=== PATIENT | female | born 1965 | race Caucasian/White ===

== ENCOUNTER 2017-03-16 06:13 | Emergency (ER) | payer OTHER ==
[~2017-03-16] VITALS: Ht 162.6 cm; Wt 68.0 kg
--- NOTE | 2017-03-16 06:24 | ED GI/GU/ABDOMINAL COMPLAINT ---
History of Present Illness General Chief Complaint: Female Urogenital Problems Stated Complaint: UTERAN PAIN EXCRUCIATING PER PT Source: patient, family, old records Exam Limitations: no limitations Vital Signs & Intake/Output Vital Signs & Intake/Output Vital Signs Date Time Temp Pulse Resp B/P B/P Pulse O2 O2 Flow FiO2 Mean Ox Delivery Rate 03/16 0901 97.3 88 18 128/67 98 03/16 0628 96.4 79 20 137/66 95 Room Air Triage Nurses Notes Reviewed? yes ? N Is pt currently ? No HPI: Patient is 6 over the past few days she has had abdominal bloating and that her pants and felt tight. Patient started her menstrual cycle 2 days ago and has been having crampy pelvic pain associated with that. This morning at 2:30 in the morning she was woken with sharp stabbing pain in the bilateral lower quadrant and suprapubic area. The pain radiates straight through to her back. The pain is severe 10 out of 10. There are no aggravating or mitigating factors. There is no nausea or vomiting. There is no hematuria. There is no diarrhea. (TERI AMOS,HANS Ham) Allergies Coded Allergies: Sulfa (Sulfonamide Antibiotics) (Severe, SUNBURN, PALPITATIONS 03/16/17) Reconcile Medications No Known Home Medications (SHELBY RHOADES MD) Past History Travel History Traveled to [place] past 21 day No Medical History Any Pertinent Medical History? see below for history Neurological: multiple sclerosis Surgical History Surgical History: appendectomy Psychosocial History What is your primary language [place] Tobacco Use: Never used ETOH Use: occasional use Illicit Drug Use: denies illicit drug use Family History Hx Contributory? No (HANS WILLIAMSON MD) Review of Systems Review of Systems Constitutional: Reports: no symptoms. EENTM: Reports: no symptoms. Respiratory: Reports: no symptoms. Cardiovascular: Reports: no symptoms. GI: Reports: see HPI, abdominal pain. Genitourinary: Reports: no symptoms. Musculoskeletal: Reports: no symptoms. Skin: Reports: no symptoms. Neurological/Psychological: Reports: no symptoms. Hematologic/Endocrine: Reports: no symptoms. Immunologic/Allergic: Reports: no symptoms. All Other Systems: Reviewed and Negative (HANS WILLIAMSON MD) Physical Exam Physical Exam General Appearance: well developed/nourished, alert, awake, moderate distress Head: atraumatic, normal appearance Eyes: Bilateral: PERRL, EOMI. Ears, Nose, Throat, Mouth: hearing grossly normal, DRY MUCOSA Neck: normal inspection, supple, full range of motion Respiratory: normal breath sounds, chest non-tender, no respiratory distress, lungs clear Cardiovascular: regular rate/rhythm, normal peripheral pulses Gastrointestinal: normal bowel sounds, soft, no organomegaly, guarding, tenderness, TENDER AND GUARDING LLQ,SUPRAPUBIC AND RLQ PAIN Back: normal inspection Extremities: normal range of motion Neurologic/Psych: no motor/sensory deficits, awake, alert, oriented x 3, normal gait, normal mood/affect Skin: intact, normal color, warm/dry Core Measures ACS in differential dx? No Severe Sepsis Present: No Septic Shock Present: No (TERI AMOS,HANS Ham) Progress Differential Diagnosis: bowel obstruction, diverticulitis, endometritis, gastritis, hepatitis, ischemic bowel, inflamm bowel dis, intrauterine , ovarian cyst, ovarian torsion, pancreatitis, PID/cervicitis, SBO, threatened AB, UTI/pyelo Plan of Care: Orders Procedure Date/time Status URINALYSIS 03/16 623 Complete LIPASE 03/16 623 Complete HUMAN BETA HCG SCREEN 03/16 623 Complete COMPREHENSIVE METABOLIC PANEL 03/16 623 Complete CBC WITHOUT DIFFERENTIAL 03/16 623 Complete AMYLASE 03/16 623 Complete Laboratory Tests 03/16/17 0638: CBC w Diff NO MAN DIFF REQ, RBC 4.72, MCV 83.9, MCH 28.0, RDW 14.0, MPV 8.7, Gran % 62.6, Lymphocytes % 28.3, Monocytes % 6.3, Eosinophils % 2.3, Basophils % 0.5, Absolute Granulocytes 4.1, Absolute Lymphocytes 1.9, Absolute Monocytes 0.4 , Absolute Eosinophils 0.1, Absolute Basophils 0, PUBS MCHC 33.3 03/16/17 0630: Anion Gap 10, Estimated GFR > 60, BUN/Creatinine Ratio 23.3, Glucose 96, Calcium 9.2, Total Bilirubin 0.5, AST 24, ALT 35, Alkaline Phosphatase 72, Total Protein 7.5, Albumin 4.4, Globulin 3.1, Albumin/Globulin Ratio 1.4, Amylase 88, Lipase 114, Total Beta HCG NEGATIVE, Urine Color PINK H, Urine Clarity CLDY H, Urine pH 6.0, Ur Specific [place] 1.015, Urine Protein 30 H, Urine Ketones NEG, Urine Nitrite NEG, Urine Bilirubin NEG, Urine Urobilinogen 0.2, Ur Leukocyte Esterase MOD H, Ur Microscopic SEDIMENT EXAMINED, Urine RBC >75 H, Urine WBC 5-10 H, Ur Epithelial Cells FEW, Urine Bacteria RARE H, Urine Hemoglobin LARGE H, Urine Glucose NEG Initial ED EKG: none Hand-Off Endorsed To: SHELBY RHOADES MD Endorsed Time: 0700 Pending: labs (HANS WILLIAMSON MD) Diagnostic Imaging: Viewed by Me: CT Scan. Discussed w/RAD: CT Scan. Radiology Impression: 1. No evidence of urolithiasis or urinary tract obstruction. 2. No acute imaging abnormalities along the gastrointestinal tract. 3. Small, 1.1 cm leiomyoma of the uterine fundus. 4. Right ovarian cyst has a simple appearance and measures up to 3 cm maximum dimension. (SHELBY RHOADES MD) Departure Departure Condition: Stable (HANS WILLIAMSON MD) Departure Time of Disposition: 934 Disposition: HOME OR SELF CARE Clinical Impression Primary Impression: Fibroid, uterine Qualifiers: Uterine leiomyoma location: unspecified location Qualified Code: D25.9 - Leiomyoma of uterus, unspecified Secondary Impressions: Ovarian cyst, Pelvic pain Referrals: MARY JOEL MD (PCP/Family) ELDA AVILES MD Departure Forms: Customer Survey General Discharge Information RELEASE- WORK Prescriptions: Current Visit Scripts Ibuprofen 1 TAB PO Q6PRN PRN pain #50 TAB with food Oxycodone HCl/Acetaminophen (Percocet 10-325 MG Tablet) 1-2 TAB PO Q6P PRN severe pain #15 TAB (SHELBY RHOADES MD) ED Attending Observation Initial Observation Note: I have seen and personally examined DEVANG SANTANA on 03/16/17 at 0627. I agree with the current emergency department documentation. The disposition (admission or discharge) is uncertain at this time, she needs a period of observation for the following reason(s): The ED Nurse caring for this patient has been personally informed as to what the patient is being observed for. (HANS WILLIAMSON MD)
[2017-03-16 06:48] LABS: ABSOLUTE BASOPHIL COUNT 0 /CUMM (0.0-0.2); ABSOLUTE EOSINOPHIL COUNT 0.1 /CUMM (0.0-0.7); ABSOLUTE GRANULOCYTE CT 4.1 /CUMM (1.4-6.5); ABSOLUTE LYMPH COUNT 1.9 /CUMM (1.2-3.4); ABSOLUTE MONOCYTE COUNT 0.4 /CUMM (0.10-0.60); BASOPHIL % 0.5 % (0.0-2.0); EOSINOPHIL % 2.3 % (0-5); GRANULOCYTE % 62.6 % (42.2-75.2); HEMATOCRIT 39.7 % (37-47); MEAN CORPUSCULAR HGB CONC 33.3 G/DL (33.0-37.0); MEAN CORPUSCULAR VOLUME 83.9 FL (81.0-99.0); MEAN PLATELET VOLUME 8.7 FL (7.4-10.4); PLATELET COUNT 284 /CUMM (130-400); RED BLOOD CELL CT 4.72 /CUMM (4.20-5.40); WHITE BLOOD CELL COUNT 6.6 /CUMM (4.8-10.8)
[2017-03-16 09:01] VITALS: BP 128/67
--- NOTE | 2017-03-16 09:16 | CT SCAN REPORT ---
EXAMINATION: CT ABDOMEN AND PELVIS WITH CONTRAST CLINICAL INFORMATION: Lower abdominal pain, bloating and nausea. History of appendectomy. COMPARISON: No recent abdominal imaging comparison exam in the electronic picture archive. TECHNIQUE: Multidetector volumetric imaging was performed of the abdomen and pelvis before and after the IV administration of 95 mL of Optiray 320 intravenous contrast. Sagittal and coronal reformatted images were obtained on the technologist's workstation. DLP: 442 mGy-cm FINDINGS: LUNG BASES: Unremarkable. LIVER, GALLBLADDER, AND BILIARY TREE: Unremarkable. PANCREAS: Unremarkable. SPLEEN: Unremarkable. ADRENAL GLANDS: Unremarkable. KIDNEYS AND URETERS: Unremarkable. BLADDER: Unremarkable. GASTROINTESTINAL TRACT: Stomach is normal. Bowel loops are normal in caliber. The terminal ileum is normal. Appendix is absent. No pericolonic fat stranding, mesenteric inflammation or ascites. ABDOMINAL WALL: Unremarkable. LYMPH NODES: No pathologic sized lymph nodes within the abdomen or pelvis. VASCULAR: Mild atherosclerotic calcification of the abdominal aorta without aneurysm. PELVIC VISCERA: The uterus is slightly retroflexed and there is a 1.1 cm leiomyoma of the anterior uterine fundus. The right ovary has a simple appearing cyst, 16 HU attenuation, measuring up to 3 cm maximum dimension. No pelvic free fluid. OSSEOUS STRUCTURES: Unremarkable. IMPRESSION: 1. No evidence of urolithiasis or urinary tract obstruction. 2. No acute imaging abnormalities along the gastrointestinal tract. 3. Small, 1.1 cm leiomyoma of the uterine fundus. 4. Right ovarian cyst has a simple appearance and measures up to 3 cm maximum dimension.
[2017-03-16] MEDS ORDERED: PERCOCET 10-321 EACH PO (09:37)
[2017-03-16] MEDS ORDERED: IBUPROFEN600 M1 PO (09:37)
== END 2017-03-16 10:02 ==
LOC: ERH 06:13
PROVIDERS: Emergency Medicine
DX: D25.9 Leiomyoma of uterus, unspecified (principal); N83.201 Unspecified ovarian cyst, right side
CPT/HCPCS: 74177; 81001; 96361; 96374; 96375; J1885

== ENCOUNTER → 2017-03-17 | Day surgery (SDC) | payer OTHER ==
[~2017-03-17] VITALS: Ht 165.1 cm; Wt 70.3 kg
[~2017-03-17] MED LIST: IBUPROFEN600 M1 PO; PERCOCET 10-321 EACH PO
--- NOTE | 2017-03-31 13:37 | Operative Report ---
Operative/Inv Procedure Report Surgery Date: 03/17/17 Name of Procedure: Laparoscopy ovarian cystectomy Pre-Operative Diagnosis: Pelvic pain Post-Operative Diagnosis: Same and adenomyosis of the uterus had ruptured ovarian cyst Estimated Blood Loss: scant Surgeon/Meat Packager: TRACI AMOS,ELDA Mancilla Anesthesia: general endotracheal tube Operative/Procedure Note Note: Procedure note patient was taken the operating room placed supine position after adequate induction general anesthesia via endotracheal tube patient placed in dorsolithotomy position the vagina from dorsal fashion bladder was catheterized examination under anesthesia performed patient tolerated this well this point CO2 tenaculum was placed on the anterior lip of the cervix. Regowned and gloved at the level the umbilicus stab incision was made to allow for the entry of Veress needle the abdomen was insufflated approximately 4 L of CO2 to liver edge dullness which point the Veress needle was removed a 10 mm trocar was inserted atraumatically at the umbilicus that sheath a laparoscope placed under direct visualization a 5 mm port was placed 2 fingerbreadths of symptoms pubis in midline through that fluid was removed from the abdomen mobile blunt port and sent to pathology on a pictures were taken. A maximum amount of CO2 was removed from the abdomen patient tolerated that well all after the incisions had been closed at the umbilicus with I 0 for the fascia 3 over the skin. A 3-0 suture Was used to the symphysis pubis incision. Interrupted Marcaine was injected underneath skin sterile bandages were applied patient was awakened from anesthesia and transferred recovery room awake alert counts correct at the Patten cannula been removed from the vagina and the patient's bladder I Joiner had been removed and patient was returned spine position Findings: Uterus was enlarged consistent with adenomyosis the uterus the right ovary showed evidence of a recently ruptured ovarian cyst there was cyst fluid in the cul-de-sac which was removed the uterus was enlarged and patient has pain the patient's pain could be consistent with adenomyosis
== END ==
LOC: STS 09:00
DX: N80.0 Endometriosis of uterus (principal); N83.201 Unspecified ovarian cyst, right side; R10.2 Pelvic and perineal pain
CPT/HCPCS: 88305; J0131; J0694; J2250